=== PATIENT | female | born 1985 | race Caucasian/White ===

== ENCOUNTER 2017-07-25 20:47 | Inpatient (IN) | payer SELFPAY ==
--- NOTE | 2017-07-25 21:23 | HP ---
General Information - General Information Maternal Age: 31 Grav: 5 Para: 4 SAB: 0 IEA: 0 Estimated Due Date: 07/15/17 Determined By: LMP Gestational Age in Weeks and Days: 41 Weeks and 3 Days Maternal Blood Type and Rh: O Negative - Results this Serology/RPR Result: Non-Reactive Rubella Result: Immune HBsAg Result: Negative HIV Result: Negative GBS Culture Result: Negative Past Medical History Delivery History: Hx Uncomplicated Vaginal Delivery Past Medical History Comment: migraine varicose veins, R leg Past Surgical History Comment: wisdom tooth extraction - Antepartal Records Antepartal Records: Reviewed, Uncomplicated Review of Systems Constitutional: Comfortable CV Complaint: No Respiratory: Shortness of Breath: No Gastrointestinal: No Nausea/Vomiting Genitourinary: Leaking Fluid Musculoskeletal: Contractions Neurological: No Headache, No Visual Changes Movement: Normal Exam Allergies/Adverse Reactions: Allergies sulfamethoxazole [From Octra] Allergy (Intermediate, Verified 07/25/17 21:09) Rash trimethoprim [From Octra] Allergy (Intermediate, Verified 07/25/17 21:09) Rash 98.4-86-18 112/61 - Measurements Height: 5 ft 5.5 in Weight: 185 lb Weight in lbs: 185 Body Mass Index (BMI): 30.3 Pre- Weight: 160 lb Weight Gained This : 25 lbs and 0 ozs - Exam Breast: - - soft, no masses Extremities: No Edema - Varicosities R leg Heart: Normal Rhythm/Heart Sounds HEENT: No Significant Findings Lungs: Clear Bilaterally Reflexes: DTR 2+ Thyroid: No Thyromegaly - Ultrasound/Biophysical Profile Ultrasound Status: Not Done Targeted Exam Findings See L&D Outpatient Visit Provider Note for Findings: N/A Estimated Weight: 7 lbs Cervical Exam: 4cm Effacement: 80% Station: -1 Presenting Part: Vertex Membrane Status: Leaking Amniotic Fluid Evaluation: Clear EFM Findings - External Monitor Findings Baseline Heart Rate: 140 External Monitor Findings: No Pattern of Variable or Late Decelerations, Variability Moderate, Baseline Stable Contractions: Moderate, 45-90 Seconds Contraction Frequency: 2-3 minutes Assessment/Plan - Reason for Visit Reason for Visit: SROM at 1910, onset of contractions 1999 - Plan Plan: Early Labor Plan Comment: Anticipate vaginal delivery - Date/Time of Admission Date of Admission: 07/25/17 Time of Admission: 21:00
[2017-07-26] MEDS ORDERED: Ibuprofen TAB* 600 MG ONE (00:10)
[2017-07-26] MEDS ORDERED: Glycerin ADULT SUPP PR PRN (00:11)
[2017-07-26] MEDS ORDERED: OXYTOCIN* 10 UNITS/ML 1 ML VIAL IM PRN (00:11)
[2017-07-26] MEDS ORDERED: Dibucaine 1% 28.35 GM TUBE PR PRN (00:11)
[2017-07-26] MEDS ORDERED: RHO D Immune Globulin (HUMAN)* 300 MCG = 1,500 I.U. INJ IM ONE (00:11)
[2017-07-26] MEDS ORDERED: Acetaminophen TAB* 325 MG PO PRN (00:11)
[2017-07-26] MEDS ORDERED: Witch Hazel PAD* JAR TOPICAL PRN (00:11)
[2017-07-26] MEDS ORDERED: Dibucaine 1% 28.35 GM TUBE ONE (00:25)
[2017-07-26] MEDS: Ibuprofen TAB* 600 MG PO PRN ×3 (06:00→20:27)
[2017-07-26 06:51] LABS: Hematocrit 37 % (35-47); Hemoglobin 12.3 g/dl (12.0-16.0); Mean Corpuscular HGB Conc 34 g/dl (31-36); Mean Corpuscular Hemoglobin 27 pg (27-31); Mean Corpuscular Volume 79 fL (80-97); Mean Platelet Volume 8.2 um3 (7.4-10.4); Platelet Count 237 10^3/ul (150-450); Red Blood Count 4.63 10^6/ul (4.0-5.4); Red Cell Distribution Width 16 % (10.5-15); White Blood Count 16.1 10^3/ul (3.5-10.8)
[2017-07-26] MEDS: Docusate CAP* 100 MG PO SCH ×3 (08:39→20:27)
[2017-07-26] MEDS: oxyCODONE/Acetamin 5/325 MG* TAB PO PRN ×2 (09:32→15:02)
[2017-07-27 08:51] VITALS: BP 114/72
[2017-07-27] MEDS ORDERED: Ferrous Gluconate TAB* 324 MG TAB PO SCH (09:00)
[2017-07-27] MEDS: Ibuprofen TAB* 600 MG PO PRN (09:17)
[2017-07-27] MEDS: Docusate CAP* 100 MG PO SCH (09:17)
== END 2017-07-27 10:45 | disposition home or self-care (01) | DRG 775 ==
LOC: MCHOBOUT 20:47 → MCHOB 21:02
PROVIDERS: ADMIT Midwife; ATTEND Midwife
PROC: 10E0XZZ Delivery of Products of Conception, External Approach (ICD-10-PCS; principal; 2017-07-25)
PROC: 0HQ9XZZ Repair Perineum Skin, External Approach (ICD-10-PCS; 2017-07-25)
DX: O48.0 Post-term pregnancy (principal); O70.0 First degree perineal laceration during delivery; Z3A.41 41 weeks gestation of pregnancy; Z37.0 Single live birth
CPT/HCPCS: 36415; 85027; A9270-GY